=== PATIENT | female | born 2000 | race Caucasian/White ===

== ENCOUNTER 2021-01-06 11:58 | Emergency (ER) | payer OTHER ==
--- NOTE | 2021-01-06 12:50 | EDM.PDOC ---
ED HPI GENERAL MEDICAL PROBLEM - General Chief Complaint: ENT Problem Stated Complaint: SWOLLEN LYMPHNODES Time Seen by Provider: 01/06/21 12:29 - History of Present Illness INITIAL COMMENTS - FREE TEXT/NARRATIVE: Previously well 20-year-old female presenting with left-sided ear pain headache and left-sided neck adenopathy. Patient states that starting 5 days ago she noticed a tender lump in her left lateral neck she then noticed a few more tracking lower down underneath her sternocleidomastoid on the left side this is associated with a left-sided headache and left-sided ear pain. No fever no neck stiffness no sore throat no cough no nausea or vomiting no abdominal pain. No recent antibiotic exposures no dysuria or hematuria and no other medical problems. Symptoms constant slowly progressive without exacerbating or alleviating factors radiation or other associated symptoms. - Related Data Allergies Allergy/AdvReac Type Severity Reaction Status Date / Time No Known Allergies Allergy Verified 01/06/21 12:43 Home Meds: Home Meds Amoxicillin 875 mg PO BID 5 Days #10 tablet 01/06/21 [Rx] ED ROS GENERAL - Review of Systems Review Of Systems: See Below Free Text/Narrative/Comment: General: No fever. Skin: No rash. Eyes: No vision problems. ENT: Per HPI Neck: No neck stiffness. Respiratory: No shortness of breath. Cardiac: No chest pain. Gastrointestinal: No nausea, vomiting or abdominal pain. Urinary: No dysuria. Musculoskeletal: No myalgias/arthralgias. Neurologic: No headache. ED EXAM, GENERAL - Physical Exam Exam: See Below Free Text/Narrative:: General Appearance: No acute distress, appears comfortable Skin: No rash HEENT: Normocephalic/atraumatic, sclera anicteric, mucous membranes moist, shotty lymphadenopathy along the border of the left sternocleidomastoid there is a erythema and effusion noted to the left TM there is no auricular swelling or redness there is no mastoid tenderness there is no facial swelling or tenderness there is no dental swelling or tenderness there is no intraoral swelling or tenderness there is no erythema of the posterior oropharynx no stridor no wheezing Neck: Normal range of motion Chest and Lungs: Bilateral breath sounds, clear to auscultation Cardiovascular: Regular rate and rhythm, no murmur Back: Normal Musculoskeletal: No edema or tenderness Neurologic: Awake, alert, no obvious deficits, moving all extremities Psychiatric: Appropriate, cooperative Course - Vital Signs Last Recorded V/S: Last Vital Signs Temp 98.0 F 01/06/21 12:36 Pulse 64 01/06/21 12:36 Resp 18 01/06/21 12:36 BP 122/71 01/06/21 12:36 Pulse Ox 98 01/06/21 12:36 Departure - Departure Time of Disposition: 12:48 Disposition: Home, Self-Care 01 Condition: Good Clinical Impression: Otitis media, Cervical lymphadenopathy - Discharge Information *PRESCRIPTION DRUG MONITORING PROGRAM REVIEWED*: Not Applicable *COPY OF PRESCRIPTION DRUG MONITORING REPORT IN PATIENT COOPER: Not Applicable Prescriptions: Amoxicillin 875 mg PO BID 5 Days #10 tablet Instructions: Otitis Media, Adult, [id number] Forms: ED Department Discharge Additional Instructions: You have some pus behind your left eardrum for this reason you have been placed on 5 days of antibiotics. You should notice improvement in your symptoms within the next 2 to 3 days. It is also possible that this is a viral infection and if that is the case I would expect you to start feeling better towards the end of this week. If your symptoms persist beyond this please follow-up with one of the primary care clinics in [facility] they are always welcome to return to the ER for any new or worsening symptoms. [facility] - Primary Care [address] [place] [address] [place] [address] The following information is given to patients seen in the emergency department who are being discharged to home. This information is to outline your options for follow-up care. We provide all patients seen in our emergency department with a follow-up referral. The need for follow-up, as well as the timing and circumstances, are variable depending upon the specifics of your emergency department visit. If you don't have a primary care physician on staff, we will provide you with a referral. We always advise you to contact your personal physician following an emergency department visit to inform them of the circumstance of the visit and for follow-up with them and/or the need for any referrals to a consulting specialist. The emergency department will also refer you to a specialist when appropriate. This referral assures that you have the opportunity for follow-up care with a specialist. All of these measure are taken in an effort to provide you with optimal care, which includes your follow-up. Under all circumstances we always encourage you to contact your private physician who remains a resource for coordinating your care. When calling for follow-up care, please make the office aware that this follow-up is from your recent emergency room visit. If for any reason you are refused follow-up, please contact the [facility] Emergency Department at and asked to speak to the emergency department charge nurse. Sepsis Event Note (ED) - Evaluation Sepsis Screening Result: No Definite Risk - Focused Exam Vital Signs: Vital Signs Temp Pulse Resp BP Pulse Ox 01/06/21 12:36 98.0 F 64 18 122/71 98 - Assessment/Plan Assessment:: 20-year-old female presenting with signs and symptoms most consistent with left- sided otitis media with cervical lymphadenopathy. Given duration of symptoms and cervical lymphadenopathy antibiotic was prescribed. No findings that would suggest deep space infection of the head or neck at this time nothing that would suggest meningitis her neck is supple range of motion is full she has no severe generalized headache and no fever. Strict return precautions were discussed and understood to follow-up with primary care was recommended. Malignancy considered but given the coincident ear pain findings on exam and the acute nature of this complaint I think that is much less likely and would not evaluate further at this point.
== END 2021-01-06 13:06 | disposition home or self-care (01) ==
LOC: MW.ED 11:58
DX: H66.93 Otitis media, unspecified, bilateral (principal); R59.0 Localized enlarged lymph nodes; R51.9 Headache, unspecified
CPT/HCPCS: 99282; 99283